=== PATIENT | female | born 1950 | race Caucasian/White ===

== ENCOUNTER 2021-08-21 05:10 | Emergency (ER) | payer OTHER, SELFPAY ==
[2021-08-21] VITALS (14 sets, daily range): BP systolic 153–186; BP diastolic 88–112; PULSE 81–107; RESP 16–20; TEMP 36.1–37.2; O2SAT 97–100
--- NOTE | ~2021-08-21 | CT_ITS ---
EXAMINATION: CT brain wo con DATE: 08/21/2021 09:36 INDICATION: Headache, posterior, radiating diffusely. Hypertension. Nausea and vomiting. TECHNIQUE: Computed tomography (CT) of the head was performed without intravenous contrast. The mA wa s adjusted according to patient size. Iterative reconstruction technique was employed. Exam dose: 60 5.33 mGy-cm total exam DLP. COMPARISON: None FINDINGS: There is bilateral carotid siphon internal carotid artery calcification. No intracranial mass lesion or hemorrhage or cerebrovascular accident, midline shift or mass effect. Normal ventricular size. No subdural or epidural hematoma. No fracture or bone destruction of the cranial vault. Included paranasal sinuses and mastoid air cells are unremarkable. IMPRESSION: Cerebral atherosclerosis No acute intracranial finding Reviewed, dictated and finalized at [facility]. Reviewed, dictated and finalized at [facility]. E EXTRA
[2021-08-21 09:22] LABS: Add Urine Microscopic? YES; Appearance Urine Cloudy (Clear); Bacteria Urine Trace /hpf; Bilirubin Urine Negative (Negative); Blood Urine 1+ (Negative); Color Urine Yellow (Yellow); Glucose Urine UA Negative (Negative); Ketones Urine 1+ mg/dL (Negative); Leukocyte Esterase Ur Trace LEU/UL (Negative); Mucus Urine Heavy /lpf; Nitrate Urine Negative (Negative); Protein Urine 2+ mg/dL (Negative); Specific Grav Ur 1.019 (1.001-1.035); Squamous Epithelial Cell Urine Occasional /hpf (Few); Urobilinogen Urine Negative mg/dL (<2.0)
[2021-08-21 09:23] LABS: Basophils Absolute Auto 0.1 K/mm3 (0.0-0.1); Basophils Percent Auto 0.5 % (0.2-1.2); Eosinophils Percent Auto 0.3 % (0-4.4); Hemoglobin 16.5 g/dL (12.0-15.0); Immature Granulocyte Absolute 0.09 K/mm3 (0.00-0.031); Immature Granulocyte Percent A 0.9 % (0-0.5); Lymphocytes Absolute Auto 1.12 K/mm3 (0.9-3.2); Lymphocytes Percent Auto 11.2 % (18.3-44.2); Mean Corpuscular HGB Conc 35.1 g/dl (32-36); Mean Corpuscular Hemoglobin 32.7 pg (26-34); Mean Corpuscular Volume 93.1 fl (80-100); Mean Platelet Volume 8.5 fl (7.4-10.4); Monocytes Absolute Auto 1.3 K/mm3 (0.1-0.6); Monocytes Percent Auto 12.8 % (2.6-8.5); Neutrophils Absolute Auto 7.4 K/mm3 (1.3-6.7); Neutrophils Percent Auto 74.3 % (45.5-73.1); Platelet Count Result 299 k/mm3 (150-375); Red Blood Count 5.05 M/mm3 (4.2-5.4); Red Cell Distribution Width 11.8 % (11.5-14.5)
[2021-08-21 09:31] LABS: Alanine Aminotransferase 27 U/L (4-35); Albumin Level 4.5 g/dL (3.5-5.1); Alkaline Phosphatase 103 U/L (38-126); Anion Gap 12 mmol/L (8-16); Aspartate Amino Transferase 31 U/L (14-36); Bilirubin,Total 0.7 mg/dL (0.2-1.3); Blood Urea Nitrogen 14 mg/dL (7-17); Calcium 9.7 mg/dL (8.4-10.2); Carbon Dioxide 26 mmol/L (22-30); Chloride 91 mmol/L (98-107); Estimated CRCL calculation 43 ml/min; Estimated Glomerular Filt Rate > 60; Glucose 97 mg/dL (65-110); Potassium 3.9 mmol/L (3.4-5.0); Sodium 129 mmol/L (137-145)
--- NOTE | 2021-08-21 09:46 | ED.HA ---
HPI - Headache General Chief Complaint: Headache Stated Complaint: migraine since wednesday, n/v Time Seen by Provider: 08/21/21 09:07 Source: patient Mode of arrival: ambulatory Limitations: no limitations History of Present Illness HPI Narrative: This is a 71-year-old female that presents to the emergency department for migraine headache x3 days. Does report history of previous migraines, but this 1 has lasted longer than usual. Associated with nausea and vomiting so she was concerned for dehydration. Reports a posterior headache that is achy in nature. She has not taken anything today For pain. She does report the headache has somewhat improved since arrival to the ED. Reports history of borderline hypertension. Noted be hypertensive today in the ED. Denies fever, vision changes, numbness, or weakness. Related Data Allergies Allergy/AdvReac Type Severity Reaction Status Date / Time No Known Allergies Allergy Unverified 09/27/18 19:29 Review of Systems Review of Systems: CONSTITUTIONAL: Denies fever ENT: Denies rhinorrhea, congestion, sore throat RESPIRATORY: Denies cough GASTROINTESTINAL: Reports nausea and vomiting. Denies abdominal pain GENITOURINARY: Denies dysuria NEUROLOGIC: Reports headache. Denies numbness, or weakness. All systems reviewed & are unremarkable except as noted in HPI and below PMFSH Past Medical History Medical History (Updated 08/21/21 @ 12:22 by Michelle Pérez PA-C) History of hypothyroidism Social History Social History (Updated 08/21/21 @ 09:48 by Michelle Pérez PA-C) Smoking status: Never smoker Exam Narrative: GENERAL: Well-appearing, well-nourished, and in no acute distress. HEAD: Normocephalic, atraumatic. EYES: PERRLA and EOMI. ENT: Nares clear, no rhinorrhea or epistaxis. Mucous membranes moist. Oropharynx without tonsillar hypertrophy exudate or other lesions. Bilateral TMs pearly jean baptiste non-bulging NECK: Supple. No adenopathy or masses. CHEST: Clear to auscultation. No respiratory distress. No wheezes rales or rhonchi HEART: Regular rate and rhythm. No murmur heard. Normal peripheral pulses. ABDOMEN: Soft, nontender, nondistended, normal active bowel sounds. EXTREMITIES: Normal range of motion. No edema. Strength equal in bilateral upper and lower extremities (5/5) SKIN: Warm, dry, no rash. NEURO: No focal deficits. Alert and oriented x3. Cranial nerves II through XII grossly intact PSYCH: Normal mood and affect Course Vital Signs Vital signs: Vital Signs Temperature 97 F L 08/21/21 05:57 Pulse Rate 99 08/21/21 05:57 Respiratory Rate 18 08/21/21 05:57 Blood Pressure 186/100 H 08/21/21 05:57 Pulse Oximetry 100 08/21/21 05:57 Temperature 98.9 F 08/21/21 07:36 Pulse Rate 88 08/21/21 12:00 Respiratory Rate 18 08/21/21 12:00 Blood Pressure 172/96 H 08/21/21 12:00 Pulse Oximetry 100 08/21/21 12:00 MDM - Headache MDM Narrative Medical decision making narrative: Patient presents to the emergency department for headache ongoing over the last couple of days. She is afebrile and nontoxic-appearing. She is neurologically intact. Noted to be hypertensive in the ED with blood pressures from 150s-180s systolic. Does report history of borderline hypertension for which she has been following with her primary. CBC shows hemoconcentration. Metabolic panel also with evidence of dehydration. Her kidney function is still normal though. UA with evidence of possible infection. Patient given a dose of IV antibiotics in the ED and will be started on oral antibiotics. CT scan of the brain is without acute findings. Patient reports relief with migraine cocktail. Able to tolerate p.o. challenge in the ED. Hydrated with IV fluids. I did attempt to reach patient's primary doctor without success. She was instructed to get a hold of her primary and have close follow-up with him. I will start her on an anti-hypertensive in the meantime as well.
[2021-08-21] MEDS: SODIUM CHLORIDE 0.9% IV 1,000 ML 999 ML IV CONT (10:05)
[2021-08-21] MEDS: METOCLOPRAMIDE HCL INJ 10 MG/2 ML VIAL IV PUSH (10:06)
[2021-08-21] MEDS: diphenhydrAMINE HCl INJ 50 MG/ML VIAL 25 MG IV PUSH (10:06)
[2021-08-21] MEDS: KETOROLAC 15 MG/ML VIAL (*BKC) IV PUSH (10:06)
== END 2021-08-21 12:53 | disposition home or self-care (01) ==
PROVIDERS: Emergency Provider Emergency Medicine
DX: R51.9 Headache, unspecified (principal); E87.1 Hypo-osmolality and hyponatremia; E86.0 Dehydration; N30.00 Acute cystitis without hematuria; I10 Essential (primary) hypertension; E03.9 Hypothyroidism, unspecified; I67.2 Cerebral atherosclerosis
CPT/HCPCS: 36415; 70450; 80053; 81001; 85025; 87077; 87086; 87088; 96365; 96375; 99284; J0696; J1200; J1885; J2765; J7030

== ENCOUNTER 2025-04-14 09:14 | Emergency (ER) | payer OTHER, SELFPAY ==
[2025-04-14 09:25] VITALS: BP 179/95; PULSE 90; RESP 14; TEMP 37.1; O2SAT 100
--- NOTE | 2025-04-14 09:32 | ED_ITS ---
HPI - Female Genitourinary General Chief complaint: Urogenital-Female Stated complaint: Uti Symptoms/Eye Irritation Time Seen by Provider: 04/14/25 09:32 Source: patient, RN notes reviewed and old records reviewed Mode of arrival: ambulatory Limitations: no limitations History of Present Illness HPI Narrative: 74 year old female who [facility] with complaints of one week duration of urinary pain. Patient reports that her symptoms have increased since Wednesday, she traveled to visit family out of town last weekend and thinks she didn't drink enough fluids. Patient reports that she was running a low grade fever which has resolved but continues to have painful urination. She states that she got a kit from [facility] today that showed she had infection and is here for follow up. Patient has also been having some increased watery drainage from eyes has history of tear duct problems in past and has contacted her eye doctor and is using OTC medication and gel Lubricant as recommended by eye doct or MD elicited complaint: UTI Pertinent past history: other (has had Past UTI) Onset (ago): week(s) (1 week) Severity scale (1-10): 4 Quality of pain: burning and aching Vaginal discharge: none Vaginal bleeding: none Related Data Home Medications ?Medication ?Instructions ?Recorded ?Confirmed ?Last Taken ?Type furosemide 20 mg tablet mg 04/14/25 Unknown History irbesartan 150 mg tablet mg 04/14/25 Unknown History levothyroxine 88 mcg tablet mcg 04/14/25 Unknown Hist ory Allergies Allergy/AdvReac Type Severity Reaction Status Date / Time No Known Allergies Allergy Verified 04/14/25 09:22 Review of Systems Review of Systems: CONSTITUTIONAL: Denies fever, chills, or sweats.has some clear watery eye discharge has had problems with tear ducts in past has called eye doctor and is using OTC eye drop as recommended by doctor and gel Lubricant for eyes. denies any visual changes and no redness noted of eyes or any mucoid discharge CARDIOVASCULAR: Denies chest pain, palpitations, or edema. RESPIRATORY: Denies cough or dyspnea. GASTROINTESTINAL: Denies abdominal pain, nausea, vomiting, or diarrhea. GENITOURINARY: Reports dysuria, frequency, urgency. Denies flank pain or hematuria. SKIN: Denies rash or itching. MUSCULOSKELETAL: Denies back pain or myalgia. Denies CVA tenderness NEUROLOGIC: Denies headache All systems reviewed & are unremarkable except as noted in HPI and below PMFSH Past Medical History Medical History (Updated 04/14/25 @ 19:31 by Lorri Solares NP) Raynauds disease History of hypothyroidism Surgical History Surgical History (Updated 04/14/25 @ 17:17 by Lorri Solares NP) History of cataract surgery bilateral eyes Social History Social History Smoking status: Never smoker Comments At time of signature, agree with nursing past medical, surgical, social and family history. There is no relevant family history pertinent to the presenting complaint Exam Narrative: GENERAL: Well-appearing, well-nourished, and in no acute distress. HEAD: Normocephalic, atraumatic some watery discharge from eyes no mucous noted or any redness to patient's eye NECK: Supple. no lymphadenopathy CHEST: Clear to auscultation. No respiratory distress.SAO2 100% on room air HEART: Regular rate and rhythm. No murmur heard. Normal peripheral pulses. ABDOMEN: Soft, nontender, nondistended, normal active bowel sounds. No CVA tenderness reports urinary pain and burning EXTREMITIES: Normal range of motion. No edema. SKIN: Warm, dry, no rash. NEURO: No focal deficits. Alert and oriented x3. Course Course Emergency Course: Patient is aware of diagnosis, understands and agrees to treatment plan.? Anticipatory guidance given.? Patient agrees to follow-up as directed and is aware of reasons to seek care at the emergency department. Portions of this record may have been created with voice recognition software Level of Care: Express Care Visit Vital Signs Vital signs: Vital Signs Temperature 37.1 C 04/14/25 09:25 Pulse Rate 90 04/14/25 09:25 Respiratory Rate 14 04/14/25 09:25 Blood Pressure 179/95 H 04/14/25 09:25 Pulse Oximetry 100 04/14/25 09:25 Oxygen Delivery Room Air 04/14/25 09:25 Temperature 37.1 C 04/14/25 09:25 Pulse Rate 90 04/14/25 09:25 Respiratory Rate 14 04/14/25 09:25 Blood Pressure 179/95 H 04/14/25 09:25 Pulse Oximetry 100 04/14/25 09:25 Oxygen Delivery Room Air 04/14/25 09:25 reviewed MDM - Female Genitourinary MDM Narrative Medical decision making narrative: Exam findings and UA show no acute concerns or changes; patient is non-toxic appearing and is in no distress.? Patient is appropriate for outpatient treatment and follow-up. Differential Diagnosis Differential diagnosis: Likely urinary tract infection and cystitis Medical Records Attestation: I reviewed the patient's medical records. Lab Data Attestation: I reviewed the patient's lab results. Lab results narrative: urine dip: glucose negative, bilirubin negative, ketone negative, specific gravity 1.015, blood 2+ pH 7.5 protein negative urobilinogen 0.2 nitrate negative,leukocyte 3+ Labs: Lab Results 04/14/25 Range/Units 09:20 POC Urine Color Yellow POC Urine Clarity Cloudy POC Urine pH 7.5 POC Ur Specif [place] 1.015 POC Urine Protein Negative (Negative) POC Ur Glucose (UA) Negative (Negative) POC Urine Ketones Negative (Negative) POC Urine Blood 2+ (Negative) POC Urine Nitrite Negative (Negative) POC Urine Bilirubin Negative (Negative) POC Urine Urobilinogen 0.2 POC U Leukocyte Esteras 3+ (Negative) reviewed Critical Care Time Critical Care Time Critical Care Time: No Discharge Plan Discharge Clinical Impression: Urinary tract infection Qualifiers: Urinary tract infection type: site unspecified Hematuria presence: with hematuria Qualified Code(s): N39.0 - Urinary tract infection, site not specified Patient Disposition: Home Condition: Stable Instructions: Antibiotic Form, Urinary Tract Infection in Women (ED) Additional Instructions: Increase fluids especially cranberry juice and water Avoid caffeine and carbonated beverages Antibiotic as directed Tylenol/ibuprofen for pain or fever Follow-up with her primary care provider if further problems or concerns Recheck if you have fever over 101, nausea and vomiting. If your symptoms persist, change or worsen significantly before you can contact your personal physician then please, without delay, go to the emergency department for further evaluation. Follow-up with PCP in 7-10 days or sooner if needed Follow up with PCP soon in regards to your blood pressure which is elevated above threshold for referral. Blood pressure above 120/80 may indicate pre- hypertension. 179/95 Patient Language: Mexican Prescriptions: New ciprofloxacin HCl 500 mg tablet 500 mg PO Q12H Qty: 10 0RF Rx Instructions: drink plenty of water with this medication No Action levothyroxine 88 mcg tablet furosemide 20 mg tablet irbesartan 150 mg tablet amlodipine 2.5 mg tablet 2.5 mg PO DAILY 14 Days Qty: 14 0RF Follow-up/Referrals: PHYSICIAN,WATER FABRICATOR OPERATOR [Primary Care Provider, Internal Medicine] Time of Disposition: 09:47 Quality Natalie Coma Scale Eyes: Open Verbal: Oriented and Alert Motor: Follows Commands Natalie Coma Total Score: 15
[2025-04-14 09:41] LABS: EDUAAPPEAR Cloudy; EDUABILI Negative (Negative); EDUABLOOD 2+ (Negative); EDUACOLOR1 Yellow; EDUAGLUCOSE Negative (Negative); EDUAKETONE Negative (Negative); EDUALEUKO 3+ (Negative); EDUANITRATE Negative (Negative); EDUAPH 7.5; EDUAPROTEIN Negative (Negative); EDUASPGRAVITY 1.015; EDUAUROBILI 0.2
== END 2025-04-14 09:56 | disposition home or self-care (01) ==
PROVIDERS: Emergency Provider Registered Nurse
DX: N39.0 Urinary tract infection, site not specified (principal); I73.00 Raynaud's syndrome without gangrene; E03.9 Hypothyroidism, unspecified
CPT/HCPCS: 81003; 87086; 99213; G0463